=== PATIENT | male | born 1975 | race Caucasian/White ===

== ENCOUNTER 2019-02-21 01:19 | Emergency (ER) | payer BC ==
[~2019-02-21] VITALS: Ht 182.9 cm; Wt 113.6 kg
[2019-02-21 01:23] VITALS: TEMP 97.7
[2019-02-21] MEDS ORDERED: LEXAPRO 10MG10 MG PO (01:32)
[2019-02-21] MEDS ORDERED: FLEXERIL 1010 MG/TAB PO ×2 (01:33→02:27)
[2019-02-21 01:40] LABS: BASO # 0.1 (0.0-0.2); BASO % 0.6 % (0.0-2.0); EOS # 1.5 (0.0-0.7); GRAN # 4.9 (1.4-6.5); GRAN % 53.9 % (42.2-75.2); HEMATOCRIT 39.2 % (42.0-52.0); HEMOGLOBIN 12.8 g/dl (13.5-18.0); LYMPH # 1.9 (1.2-3.4); MEAN CELL VOLUME 93 fl (80.0-100.0); MEAN CORPUSCULAR HEMOGLOBIN 30 pg (27.0-31.0); MEAN CORPUSCULAR HGB CONC 33 g/dl (33.0-37.0); MONO # 0.7 (0.1-0.6); MONO % 7.7 % (1.7-9.3); PLATELET COUNT 312 K/mm3 (130-400); RED BLOOD COUNT 4.23 M/mm3 (4.20-5.60); REDCELL DISTRIBUTION WIDTH-CV 13.2 % (11.5-14.5)
[2019-02-21 02:06] LABS: ALANINE AMINOTRANSFERASE 33 U/L (21-72); ALBUMIN 4.4 gm/dL (3.5-5.0); ALKALINE PHOSPHATASE 71 U/L (50-136); ANION GAP 10 mmol/L (7-16); AST,SGOT 40 U/L (15-37); BILIRUBIN,TOTAL 0.3 mg/dL (0.0-1.0); BLOOD UREA NITROGEN 16 mg/dL (9-20); CALCIUM 8.9 mg/dL (8.4-10.2); CARBON DIOXIDE 26 mmol/L (22-30); CHLORIDE 103 mmol/L (98-107); CREATININE, serum 1.36 (0.66-1.25); GLUCOSE 146 mg/dL (74-106); POTASSIUM 4.1 mmol/L (3.4-5.0); SODIUM 139 mmol/L (137-145)
[2019-02-21 02:09] LABS: COLLECTION METHOD CLEAN CATCH
[2019-02-21 02:15] LABS: MUCOUS Present /lpf; PH 5 (5-8); SQUAMOUS EPITHELIAL 0-2 /hpf; URINE APPEARANCE Hazy; URINE BACTERIA Rare /hpf; URINE BILIRUBIN Negative (NEGATIVE); URINE BLOOD Negative (NEGATIVE); URINE COLOR Amber; URINE GLUCOSE Negative (NEGATIVE); URINE KETONE Trace (NEGATIVE); URINE LEUKOCYTE ESTERASE Negative (NEGATIVE); URINE NITRATE Negative (NEGATIVE); URINE PROTEIN(semi-quant) Negative (NEGATIVE)
[2019-02-21 02:19] LABS: TROPONIN-I < 0.012 ng/mL (0.000-0.035)
[2019-02-21] MEDS ORDERED: LIDODERM 5% PATC1 EA TP (02:31)
[2019-02-21] MEDS ORDERED: PREDNISONE20 MG PO (02:32)
[2019-02-21] MEDS ORDERED: OMNICEF 300MG300 MG PO (02:36)
[2019-02-21 02:59] VITALS: BP 119/81; PULSE 69
== END 2019-02-21 03:01 | disposition home or self-care (01) ==
LOC: COL.ER 01:19
PROVIDERS: Emergency Medicine
DX: M54.9 Dorsalgia, unspecified (principal); R07.89 Other chest pain
CPT/HCPCS: J1885